=== PATIENT | female | born 1960 | race Caucasian/White ===

== ENCOUNTER 2018-07-25 11:42 | Emergency (ER) | payer MEDICARE, MEDICAID ==
[~2018-07-25] VITALS: Ht 162.6 cm; Wt 79.5 kg
[2018-07-25 11:47] VITALS: TEMP 98.9
[2018-07-25 12:20] LABS: BASO % 0.3 % (0.0-2.0); EOS # 0.1 (0.0-0.7); GRAN # 7.2 (1.4-6.5); GRAN % 67.4 % (42.2-75.2); HEMATOCRIT 43.7 % (37.0-47.0); HEMOGLOBIN 14.7 g/dl (12.5-16.0); LYMPH # 2.5 (1.2-3.4); LYMPH % 23.3 % (20.0-51.0); MEAN CELL VOLUME 87 fl (80.0-100.0); MEAN CORPUSCULAR HEMOGLOBIN 29 pg (27.0-31.0); MEAN CORPUSCULAR HGB CONC 34 g/dl (33.0-37.0); MEAN PLATELET VOLUME 13.6 fl (7.4-10.4); MONO # 0.8 (0.1-0.6); MONO % 7.6 % (1.7-9.3); PLATELET COUNT 124 K/mm3 (130-400); RED BLOOD COUNT 5.04 M/mm3 (4.10-5.30); REDCELL DISTRIBUTION WIDTH-CV 13.2 % (11.5-14.5)
[2018-07-25 12:33] LABS: ALBUMIN 4.3 gm/dL (3.5-5.0); BILIRUBIN,TOTAL 0.5 mg/dL (0.0-1.0); C-REACTIVE PROTEIN 1.1 mg/dL (0.0-0.9); CALCIUM 9.5 mg/dL (8.4-10.2); CREATININE, serum 0.8 mg/dL (0.52-1.25); POTASSIUM 3.6 mmol/L (3.4-5.0); TOTAL PROTEIN 7.4 gm/dL (6.4-8.2)
[2018-07-25 14:12] VITALS: BP 117/76; PULSE 68
== END 2018-07-25 14:29 | disposition home or self-care (01) ==
LOC: COL.ER 11:42
PROVIDERS: Nurse Practitioner Primary Care
DX: K59.00 Constipation, unspecified (principal); E11.9 Type 2 diabetes mellitus without complications; F17.210 Nicotine dependence, cigarettes, uncomplicated; K21.9 Gastro-esophageal reflux disease without esophagitis; M79.7 Fibromyalgia; Z98.51 Tubal ligation status
CPT/HCPCS: J2270; Q9967

== ENCOUNTER 2019-02-06 17:49 | Emergency (ER) | payer MEDICARE, MEDICAID ==
[~2019-02-06] VITALS: Ht 162.6 cm; Wt 77.3 kg
[2019-02-06 17:54] VITALS: TEMP 97.8
[2019-02-06 18:31] LABS: BASO % 0.3 % (0.0-2.0); EOS # 0.1 (0.0-0.7); EOS % 1.5 % (0-4.0); GRAN # 6.1 (1.4-6.5); GRAN % 64.8 % (42.2-75.2); HEMATOCRIT 45.6 % (37.0-47.0); HEMOGLOBIN 15.6 g/dl (12.5-16.0); LYMPH # 2.4 (1.2-3.4); LYMPH % 25.5 % (20.0-51.0); MEAN CELL VOLUME 86 fl (80.0-100.0); MEAN CORPUSCULAR HEMOGLOBIN 29 pg (27.0-31.0); MEAN CORPUSCULAR HGB CONC 34 g/dl (33.0-37.0); MEAN PLATELET VOLUME 14.2 fl (7.4-10.4); MONO # 0.7 (0.1-0.6); MONO % 7.7 % (1.7-9.3); PLATELET COUNT 116 K/mm3 (130-400); RED BLOOD COUNT 5.31 M/mm3 (4.10-5.30); REDCELL DISTRIBUTION WIDTH-CV 12.7 % (11.5-14.5)
[2019-02-06 18:46] LABS: ACETONE,SERUM NEGATIVE
[2019-02-06 18:49] LABS: ALANINE AMINOTRANSFERASE 61 U/L (9-52); ALBUMIN 4.1 gm/dL (3.5-5.0); ALKALINE PHOSPHATASE 94 U/L (50-136); ANION GAP 12 mmol/L (7-16); AST,SGOT 47 U/L (15-37); BILIRUBIN,TOTAL 0.4 mg/dL (0.0-1.0); BLOOD UREA NITROGEN 15 mg/dL (7-17); CALCIUM 9.3 mg/dL (8.4-10.2); CARBON DIOXIDE 26 mmol/L (22-30); CHLORIDE 99 mmol/L (98-107); CREATININE, serum 0.78 (0.52-1.25); GLUCOSE 250 mg/dL (74-106); LIPASE 81 U/L (23-300); POTASSIUM 3.4 mmol/L (3.4-5.0); SODIUM 137 mmol/L (137-145)
[2019-02-06 19:04] LABS: TROPONIN-I < 0.012 ng/mL (0.000-0.035)
[2019-02-06 19:17] LABS: COLLECTION METHOD CLEAN CATCH
[2019-02-06 19:22] LABS: PH 6 (5-8); SQUAMOUS EPITHELIAL 0-2 /hpf; URINE APPEARANCE Clear; URINE BACTERIA Rare /hpf; URINE BILIRUBIN Negative (NEGATIVE); URINE BLOOD Negative (NEGATIVE); URINE COLOR Yellow; URINE GLUCOSE 3+ (NEGATIVE); URINE KETONE Negative (NEGATIVE); URINE LEUKOCYTE ESTERASE Negative (NEGATIVE); URINE NITRATE Negative (NEGATIVE); URINE PROTEIN(semi-quant) Negative (NEGATIVE); URINE RBC None Seen /hpf; URINE UROBILINOGEN Negative (NEGATIVE)
[2019-02-06] MEDS ORDERED: BUSPAR5 MG PO (20:07)
[2019-02-06] MEDS ORDERED: FLONASEALLERGY NS (20:08)
[2019-02-06] MEDS ORDERED: CYMBALTA 60MG60 MG PO (20:08)
[2019-02-06] MEDS ORDERED: HCTZ 25MG TAB25 MG PO (20:09)
[2019-02-06] MEDS ORDERED: LINZESS72 MCG PO (20:09)
[2019-02-06] MEDS ORDERED: SINGULAIR 110 MG/TAB PO (20:10)
[2019-02-06] MEDS ORDERED: PRIL40 PO (20:11)
[2019-02-06] MEDS ORDERED: LYRICA200 MG PO (20:11)
[2019-02-06] MEDS ORDERED: CENTRUM1 TA1 (20:11)
[2019-02-06] MEDS ORDERED: NATURAL E400 IU PO (20:12)
[2019-02-06] MEDS ORDERED: GLUCOPHAGE1000 MG PO (20:12)
[2019-02-06] MEDS ORDERED: TRULICITY0.75 MG/0. SQ (20:12)
[2019-02-06 20:55] VITALS: BP 116/70; PULSE 73
== END 2019-02-06 20:55 | disposition home or self-care (01) ==
LOC: COL.ER 17:49
PROVIDERS: Emergency Medicine
DX: E11.65 Type 2 diabetes mellitus with hyperglycemia (principal); R10.31 Right lower quadrant pain; F17.210 Nicotine dependence, cigarettes, uncomplicated; M79.7 Fibromyalgia; R10.11 Right upper quadrant pain; Z98.51 Tubal ligation status; Z79.84 Long term (current) use of oral hypoglycemic drugs
CPT/HCPCS: J1815; J2405; J3010; J7030; Q9967

== ENCOUNTER → 2019-03-17 | Outpatient (CLI) | payer MEDICARE, MEDICAID ==
[~2019-03-17] MED LIST: BUSPAR5 MG PO; CENTRUM1 TA1; CYMBALTA 60MG60 MG PO; FLONASEALLERGY NS; GLUCOPHAGE1000 MG PO; HCTZ 25MG TAB25 MG PO; LINZESS72 MCG PO; LYRICA200 MG PO; NATURAL E400 IU PO; PRIL40 PO; SINGULAIR 110 MG/TAB PO; TRULICITY0.75 MG/0. SQ
== END ==
LOC: DIA.ED 03-16 07:40
DX: E11.40 Type 2 diabetes mellitus with diabetic neuropathy, unspecified (principal); I10 Essential (primary) hypertension
CPT/HCPCS: G0108

== ENCOUNTER 2019-08-07 17:31 | Inpatient (IN) | payer MEDICARE, MEDICAID ==
[~2019-08-07] VITALS: Ht 162.6 cm; Wt 77.5 kg
[~2019-08-07 17:31] MED LIST changes: -CENTRUM1 TA1; +CENTRUM1 TA1 PO; -LYRICA200 MG PO; +LYRICA225 MG PO
[2019-08-07] MEDS ORDERED: CLARITIN 1010 MG/TAB PO (18:40)
[2019-08-07 19:26] LABS: BASO # 0.1 (0.0-0.2); BASO % 0.3 % (0.0-2.0); EOS % 0.2 % (0-4.0); GRAN # 13.4 (1.4-6.5); GRAN % 83.5 % (42.2-75.2); HEMATOCRIT 44.3 % (37.0-47.0); HEMOGLOBIN 14.8 g/dl (12.5-16.0); LYMPH # 1.5 (1.2-3.4); LYMPH % 9.3 % (20.0-51.0); MEAN CELL VOLUME 88 fl (80.0-100.0); MEAN CORPUSCULAR HEMOGLOBIN 29 pg (27.0-31.0); MEAN CORPUSCULAR HGB CONC 33 g/dl (33.0-37.0); MEAN PLATELET VOLUME 13.5 fl (7.4-10.4); MONO # 0.9 (0.1-0.6); MONO % 5.5 % (1.7-9.3); PLATELET COUNT 120 K/mm3 (130-400); RED BLOOD COUNT 5.06 M/mm3 (4.10-5.30); REDCELL DISTRIBUTION WIDTH-CV 13.2 % (11.5-14.5)
[2019-08-07 19:30] LABS: INR 0.9 (0.8-3.0)
[2019-08-07 19:39] LABS: ALBUMIN 4.5 gm/dL (3.5-5.0); BILIRUBIN,TOTAL 0.6 mg/dL (0.0-1.0); CALCIUM 9.2 mg/dL (8.4-10.2); CREATININE, serum 1.06 (0.52-1.25); POTASSIUM 3.3 mmol/L (3.4-5.0); TOTAL PROTEIN 7.5 gm/dL (6.4-8.2)
[2019-08-07 21:34] VITALS: BP 119/57; PULSE 73; TEMP 98.1
--- NOTE | 2019-08-07 22:00 | NUR ---
Received from ER via [facility]. Assessment complete. A&Ox3. VS stable. C/O pain to right hip-rating pain 10/10 described as constant throbbing-morphine given per dr order. Refusing ice pack states "fibro and ice dont mesh." Denies shortness of breath/nausea. Plan of care discussed for ortho consult and surgery in AM. Denies questions/concerns. Oriented to room/policy. Call light in reach. Bed in low/wheels locked. Will monitor.
[2019-08-08] VITALS (13 sets, daily range): BP systolic 96–122; BP diastolic 42–58; PULSE 68–97; TEMP 97.9–99.4
[2019-08-08 03:40] LABS: COLLECTION METHOD IN
[2019-08-08 03:45] LABS: MUCOUS Present /lpf; PH 5 (5-8); SQUAMOUS EPITHELIAL 0-2 /hpf; URINE APPEARANCE Clear; URINE BACTERIA None Seen /hpf; URINE BILIRUBIN Negative (NEGATIVE); URINE BLOOD Negative (NEGATIVE); URINE COLOR Yellow; URINE GLUCOSE Negative (NEGATIVE); URINE KETONE Negative (NEGATIVE); URINE LEUKOCYTE ESTERASE Negative (NEGATIVE); URINE NITRATE Negative (NEGATIVE); URINE PROTEIN(semi-quant) Negative (NEGATIVE); URINE RBC 0-2 /hpf; URINE UROBILINOGEN Negative (NEGATIVE)
[2019-08-08 07:45] LABS: BASO % 0.2 % (0.0-2.0); EOS # 0.1 (0.0-0.7); EOS % 0.5 % (0-4.0); GRAN # 9.7 (1.4-6.5); GRAN % 74.5 % (42.2-75.2); HEMATOCRIT 40.9 % (37.0-47.0); HEMOGLOBIN 13.4 g/dl (12.5-16.0); LYMPH % 15.5 % (20.0-51.0); MEAN CELL VOLUME 89 fl (80.0-100.0); MEAN CORPUSCULAR HEMOGLOBIN 29 pg (27.0-31.0); MEAN CORPUSCULAR HGB CONC 33 g/dl (33.0-37.0); MEAN PLATELET VOLUME 13.7 fl (7.4-10.4); MONO # 1.2 (0.1-0.6); MONO % 8.8 % (1.7-9.3); PLATELET COUNT 112 K/mm3 (130-400); REDCELL DISTRIBUTION WIDTH-CV 13.4 % (11.5-14.5)
[2019-08-08 08:11] LABS: CALCIUM 8.9 mg/dL (8.4-10.2); CREATININE, serum 0.83 (0.52-1.25); POTASSIUM 3.9 mmol/L (3.4-5.0)
--- NOTE | 2019-08-08 09:00 | NUR ---
Patient alert and oriented, answers questions appropriately. See assessment. RLE with neuros intact, pulses palpable. RLE externally rotated and shortening noted. C/o pain 4/10 to RLE.
--- NOTE | 2019-08-08 09:16 | NUR ---
Initial visit; Patient thanked Sawyer Helper for offering spiritual care and was receptive to Sawyer Helper keeping her in Sawyer Helper's prayers.
--- NOTE | 2019-08-08 11:10 | NUR ---
Report called to BAYLEE Farnsworth.
--- NOTE | 2019-08-08 12:00 | NUR ---
Coloring Checker met with patient, patient's sister Patty (ph#[phone]) and patient's ex-spouse Felix (ph#[phone]) to discuss discharge planning. Patient sees LIVIA Sandhu at [place] for primary care and obtains medications from [facility] with no difficulties. Patient does not use any DME but reports she has testing equipment for her diabetes. Patient reports independence with ADLS prior to her fall. Patient does not have Advance Directives but may be interested in setting them up during her stay here. SW will follow up. SW reviewed discharge planning options with patient including intermediate facilities and inpatient rehabilitation. Patient states she is hopeful to go home with either her sister or ex-spouse with outpatient therapy. Patty lives in [place] and Felix lives in [place]. SW to continue to follow for PT/OT evaluations and recommendations. Patient to have surgery later today.
--- NOTE | 2019-08-08 20:00 | NUR ---
Patient in bed, awake. States she is slightly uncomfortable, but does not need pain medication at this time. BP 96/49. Will infuse ordered IVF and recheck. Denies further needs at this time. Will continue to monitor.
--- NOTE | 2019-08-08 21:30 | NUR ---
Shift assessment complete. Patient in bed, awake. States pain 6/10 in right hip. Prn pain medication given. Pt not adequately consuming fluids, ordered IVF started at 125ml/hr into right AC IV. IV flushed prior, patent. IV dressing changed. Patient encouraged to C&DB, and to use IS. Patient verbalized understanding. TEDS/SCDs on. Right leg elevated on pillow. Repositioned to left side with pillow support per pt request. Denies further needs at this time. Will continue to monitor.
[2019-08-09 03:21] VITALS: BP 102/52; PULSE 95; TEMP 99.3
--- NOTE | 2019-08-09 03:35 | NUR ---
Patient in bed, awake. States pain 6/10 in right hip. Prn pain medication given. Ice pack applied to right hip. Denies further needs at this time. Will continue to monitor.
[2019-08-09 07:16] LABS: HEMATOCRIT 29.8 % (37.0-47.0); HEMOGLOBIN 9.8 g/dl (12.5-16.0)
[2019-08-09 07:27] LABS: CREATININE, serum 0.63 (0.52-1.25); POTASSIUM 3.6 mmol/L (3.4-5.0)
[2019-08-09 07:43] VITALS: BP 107/36; PULSE 104; TEMP 99
[2019-08-09 08:57] LABS: MEAN CELL VOLUME 89 fl (80.0-100.0); MEAN CORPUSCULAR HEMOGLOBIN 29 pg (27.0-31.0); MEAN CORPUSCULAR HGB CONC 33 g/dl (33.0-37.0); MEAN PLATELET VOLUME 14.3 fl (7.4-10.4); PLATELET COUNT 78 K/mm3 (130-400); RED BLOOD COUNT 3.38 M/mm3 (4.10-5.30); REDCELL DISTRIBUTION WIDTH-CV 13.4 % (11.5-14.5)
--- NOTE | 2019-08-09 09:45 | NUR ---
Patient alert and oriented, answers questions appropriately. See assessment. Incision to RLE with dressings CDI, no drainage noted. Neuros intact to RLE, pulses palpable. SCDs and TEDS in place. Encouraged post op exercises. No c/o at this time.
--- NOTE | 2019-08-09 10:59 | NUR ---
Fourth Officer checked PT/OT notes for discharge recommendations. SW spoke with Shaheed PT who is recommending Inpatient Rehab for patient. SW spoke with patient about a second preference and she advised she was not sure at this point but has heard good things about [facility]. Patient asked to wait on result from IPR referral before exploring second preference options. SW contacted Luli, IPR Director who will review referral. SW to continue to follow.
[2019-08-09 11:26] VITALS: BP 100/45; PULSE 99; TEMP 99.2
[2019-08-09 16:24] VITALS: BP 107/55; PULSE 94; TEMP 99.2
[2019-08-09 19:51] VITALS: BP 105/42; PULSE 96; TEMP 98.7
[2019-08-10 00:06] VITALS: BP 100/54; PULSE 92; TEMP 99.3
--- NOTE | 2019-08-10 01:02 | NUR ---
Patient alert and oriented, iv restarted on left forarm. Patient denied needs at this time. Dressing on right hip and outer knee are clean dry and intact. Patient has flores at this time.
[2019-08-10 03:20] VITALS: BP 109/50; PULSE 96; TEMP 99.2
[2019-08-10 06:51] LABS: BASO % 0.2 % (0.0-2.0); EOS # 0.1 (0.0-0.7); EOS % 0.5 % (0-4.0); GRAN # 9.3 (1.4-6.5); GRAN % 76.8 % (42.2-75.2); LYMPH # 1.4 (1.2-3.4); LYMPH % 11.1 % (20.0-51.0); MEAN CELL VOLUME 89 fl (80.0-100.0); MEAN CORPUSCULAR HGB CONC 33 g/dl (33.0-37.0); MEAN PLATELET VOLUME 13.6 fl (7.4-10.4); MONO # 1.3 (0.1-0.6); MONO % 10.7 % (1.7-9.3); PLATELET COUNT 70 K/mm3 (130-400); RED BLOOD COUNT 3.03 M/mm3 (4.10-5.30); REDCELL DISTRIBUTION WIDTH-CV 13.2 % (11.5-14.5)
[2019-08-10 07:02] LABS: CREATININE, serum 0.57 (0.52-1.25); POTASSIUM 3.5 mmol/L (3.4-5.0)
[2019-08-10 07:10] LABS: HEMATOCRIT 26.9 % (37.0-47.0); HEMOGLOBIN 8.9 g/dl (12.5-16.0); MEAN CORPUSCULAR HEMOGLOBIN 29 pg (27.0-31.0)
[2019-08-10] MEDS ORDERED: NORCO 325 MG-51 TAB PO (09:03)
[2019-08-10] MEDS ORDERED: NICODERM C14 MG/PATC TD (09:05)
[2019-08-10] MEDS ORDERED: XARELTO10 MG PO (09:06)
[2019-08-10] MEDS ORDERED: TYLENOL 325MG325 MG PO (09:06)
[2019-08-10] MEDS ORDERED: DULCOLAX S10 MG/SUPP RC (09:07)
[2019-08-10] MEDS ORDERED: SENNA-S 50 MG-81 TAB PO (09:07)
[2019-08-10 09:13] VITALS: BP 103/34; PULSE 96; TEMP 98.6
--- NOTE | 2019-08-10 11:24 | NUR ---
[facility] was notified by Luli, [facility] Director that they can accept patient. Patient to discharge to [facility] today.
== END 2019-08-10 10:22 | DRG 482 ==
LOC: COL.ER 17:31 → SURG 18:58
PROVIDERS: Emergency Medicine; Nurse Practitioner Family; Orthopaedic Surgery; ADMIT Student in an Organized Health Care Education/Training Program
PROC: 0QH606Z Insertion of Intramedullary Internal Fixation Device into Right Upper Femur, Open Approach (ICD-10-PCS; 2019-08-08)
PROC: 0QS604Z Reposition Right Upper Femur with Internal Fixation Device, Open Approach (ICD-10-PCS; principal; 2019-08-08 14:15)
DX: S72.141A Displaced intertrochanteric fracture of right femur, initial encounter for closed fracture (principal); S72.21XA Displaced subtrochanteric fracture of right femur, initial encounter for closed fracture; W07.XXXA Fall from chair, initial encounter; Y92.009 Unspecified place in unspecified non-institutional (private) residence as the place of occurrence of the external cause; E11.9 Type 2 diabetes mellitus without complications; F17.210 Nicotine dependence, cigarettes, uncomplicated; M79.7 Fibromyalgia; D69.6 Thrombocytopenia, unspecified; D72.829 Elevated white blood cell count, unspecified; E87.6 Hypokalemia; K75.81 Nonalcoholic steatohepatitis (NASH); Z79.84 Long term (current) use of oral hypoglycemic drugs
CPT/HCPCS: 99222-AI; 99233-AI; 99239; A9284; C1713; C1769; J0690; J1815; J2250; J2270; J2405; J2704; J2795; J3010; J3370; J7030

== ENCOUNTER 2019-08-10 10:20 | Inpatient (IN) | payer MEDICARE, MEDICAID ==
[~2019-08-10] VITALS: Ht 162.6 cm; Wt 80.9 kg
[~2019-08-10 10:20] MED LIST changes: +CLARITIN 1010 MG/TAB PO; +DULCOLAX S10 MG/SUPP RC; +NICODERM C14 MG/PATC TD; +NORCO 325 MG-51 TAB PO; +SENNA-S 50 MG-81 TAB PO; +TYLENOL 325MG325 MG PO; +XARELTO10 MG PO
[2019-08-10 10:49] VITALS: BP 103/34; PULSE 96; TEMP 98.6
--- NOTE | 2019-08-10 10:51 | NUR ---
Report from ADEN Herrera. Pt admitted to 334 from surgical via bed, yellow gown and glasses in place. INT to [facility], flores catheter out, requested pt/OT to report voiding to this nurse.
--- NOTE | 2019-08-10 12:39 | NUR ---
Warm blanket and pain med given, pt does not want to eat at this time.
[2019-08-10 16:24] VITALS: BP 93/41; PULSE 101; TEMP 100.2
[2019-08-10 17:26] VITALS: BP 93/41; PULSE 101; TEMP 100.2
[2019-08-10 18:20] VITALS: BP 106/48; PULSE 110; TEMP 97.8
--- NOTE | 2019-08-10 19:42 | NUR ---
Pt requested more pain meds, orders obtained for norco 1-2 tabs. Pt resting comfortably in bed after supper. Report to ADEN Preston.
--- NOTE | 2019-08-10 21:00 | NUR ---
PT RESTING IN BED. A&O X4. PLEASANT AND COOPERATIVE. CONSENTS SIGNED, BIMS DONE. PT RELATES PAIN IS TOLERABLE AT LEVEL 4. REVIEWED IPR ROUTINE AND IPR FOLDER WITH INFO. TEDS OFF. SCD'S ON BILAT. SEE SHIFT ASSESSMENT.
[2019-08-10 23:38] VITALS: BP 113/42; PULSE 93; TEMP 97.8
--- NOTE | 2019-08-11 05:00 | NUR ---
MIN 1 ASSIST PT TO BR W/ WALKER. SLOW BUT STEADY. REQ PAIN MED AND NICOTINE PATCH. REPLACED LOST PATCH TO RT UPPER ARM. SEE MAR. PT C/O BED MATTRESS CAUSING MUCH BACK PAIN. FOAM MATTRESS PLACED ON BED. O2 BACK ON. CHANGED TO 2L NC. HAD BEEN ON 3L NC. ENC IS USE. CALL LIGHT IN REACH. BED ALARMSET.
[2019-08-11 05:45] VITALS: BP 104/35; PULSE 85; TEMP 97.9
[2019-08-11 07:22] LABS: BASO % 0.3 % (0.0-2.0); EOS # 0.1 (0.0-0.7); EOS % 0.8 % (0-4.0); GRAN # 7.5 (1.4-6.5); GRAN % 74.7 % (42.2-75.2); LYMPH # 1.2 (1.2-3.4); LYMPH % 12.2 % (20.0-51.0); MEAN CELL VOLUME 88 fl (80.0-100.0); MEAN CORPUSCULAR HGB CONC 33 g/dl (33.0-37.0); MEAN PLATELET VOLUME 13.9 fl (7.4-10.4); MONO # 1.2 (0.1-0.6); MONO % 11.6 % (1.7-9.3); PLATELET COUNT 82 K/mm3 (130-400); RED BLOOD COUNT 2.71 M/mm3 (4.10-5.30); REDCELL DISTRIBUTION WIDTH-CV 13.2 % (11.5-14.5)
[2019-08-11 07:23] LABS: HEMATOCRIT 23.9 % (37.0-47.0); HEMOGLOBIN 7.9 g/dl (12.5-16.0); MEAN CORPUSCULAR HEMOGLOBIN 29 pg (27.0-31.0)
--- NOTE | 2019-08-11 09:39 | NUR ---
Report from ADEN Preston. Pt bedresting after finishing breakfast. Traced shadowing to both aquacel dressings to rt lateral thigh. Distal gauze and tegaderm by knee without shadowing. Pt's O2 per NC removed this morning while meds were given. Reports sinus congestion and slight bleeding, will get orders for saline nasal spray. Pt declined offer of pain med prior to start of therapy, but called for pill once therapy started and she was doing bed mobility. Takes pills whole with thin liquids, PRN Bowel Meds given and rehab cocktail. Pt reports numbness to rt hand since hospitalization, enc shoulder/arm ROM. Pt with BENITEZ Osei.
--- NOTE | 2019-08-11 12:39 | NUR ---
Follow-up visit; Patient and her sister thanked Music Artist for looking in on her again, wishing her well and offering encouragement.
--- NOTE | 2019-08-11 14:41 | NUR ---
Manager Universal met with patient to complete initial intake as patient is new to [facility]. Patient lives alone in [place]. Patient has support from her ex-spouse, Felix (ph#[phone]) who lives in [place] and her sister Patty (ph#[phone]) who lives in [place]. Patient sees LIVIA Sandhu at [place] for primary care and obtains medications from [facility] with no difficulties. Patient does not use any DME currently and was independent with ADLS prior to her fall. Patient does not have Advance Directives set up but states she plans to sit down with her family soon to establish them. SW to continue to follow.
[2019-08-11 16:23] VITALS: BP 110/51; PULSE 95; TEMP 98.6
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
--- NOTE | 2019-08-11 20:00 | NUR ---
PATIENT RESTING IN BED DURING SHIFT CHANGE REPORT FROM DAY SHIFT NURSE. BED ALARM ENGAGED. NO OTHER NEEDS REPORTED.
--- NOTE | 2019-08-11 20:01 | NUR ---
Bedside report to ADEN Romero. Pt resting comfortably in bed, glasses in place, yellow gripper socks and yellow gown on, call lt in reach, pillows under BLE, bed alarm on. Pt denies further needs at that time.
--- NOTE | 2019-08-12 03:14 | NUR ---
PATIENT RESTING WITH EYES CLOSED, DOES NOT AWAKEN WHEN ROOM ENTERED. BED ALARM ENGAGED.
[2019-08-12 05:41] VITALS: BP 103/49; PULSE 82; TEMP 98.5
--- NOTE | 2019-08-12 07:44 | NUR ---
REPORT GIVEN TO DAY SHIFT NURSE DURING SHIFT CHANGE, PATIENT RESTING IN BED. PATIENT RESTING WITH EYES CLOSED, DOES NOT AWAKEN WHEN ROOM ENTERED. BED ALARM ENGAGED
[2019-08-12] MEDS ORDERED: GLUMETZA1000 MG PO (08:13)
--- NOTE | 2019-08-12 09:51 | NUR ---
Follow-up visit; Patient appeared to appreciate Passenger Brakeman stopping in and wishing her well along with talking briefly about grief and the availability of Passenger Brakeman to listen and offer support.She thanked Passenger Brakeman for offering spiritual care.
--- NOTE | 2019-08-12 10:27 | NUR ---
Patient sitting up at edge of bed, she has been working with therapy. Pain manged after norco given. New aquacell dressing to right hip after shower, shadowing noted to edges of dressing. Overall patient is doing well, only concern is when she can discharge home.
--- NOTE | 2019-08-12 15:00 | NUR ---
Blacksmith Hammer Operator met with patient to check in before the weekend. Patient reports she is doing well and has no concerns or questions at this time. SW to continue to follow.
[2019-08-12 17:32] VITALS: BP 109/61; PULSE 91; TEMP 97.6
--- NOTE | 2019-08-12 17:45 | NUR ---
Patient continues to do well today. Sitting up in bed eating dinner. She denies the need for pain medication this evening.
--- NOTE | 2019-08-12 20:00 | NUR ---
PATIENT RESTING IN BED DURING SHIFT CHANGE REPORT FROM DAY SHIFT NURSE. BED ALARM ENGAGED.
--- NOTE | 2019-08-13 03:26 | NUR ---
RESTING WITH EYES CLOSED, DOES NOT AWAKEN WHEN ROOM ENTERED. BED ALARM ENGAGED
[2019-08-13 04:41] VITALS: BP 115/48; PULSE 94; TEMP 97.3
--- NOTE | 2019-08-13 07:23 | NUR ---
PATIENT RESTING IN BED DURING SHIFT CHANGE REPORT GIVEN TO DAY SHIFT NURSE. BED ALARM ENGAGED.
--- NOTE | 2019-08-13 12:43 | NUR ---
Patient resting in bed at this time. She had a visitor this morning and opted to not go to group therapy, but OT was going to drop off some weights for her to use over the weekend. She has been having some hip pain and has been using ice and pain meds to manage. Both she reports have been effective. She was independent with her grooming while sitting in a wheelchair. She uses her call light appropriatly. She pulls pants, down, up and wipes her self independently when using the toilet. Patient denies questions at this time. Will continue to monitor.
[2019-08-13 18:30] VITALS: BP 118/50; PULSE 91; TEMP 98
--- NOTE | 2019-08-13 20:00 | NUR ---
PATIENT RESTING IN BED DURING SHIFT CHANGE REPORT FROM DAY SHIFT NURSE. BED ALARM ENGAGED.
--- NOTE | 2019-08-13 20:27 | NUR ---
Patient did not attend group this morning due to having a visitor at that time. Patient did receive some weights to work out by herself in her room. This nurse observed her doing excersizes multiple times today. Patient was given a suppository this evening and it was effective. Patient currently resting in bed, call light in reach and denies any questions at this time. She undressed herself, and put her night gown on herself. Patient given prn pain meds through out the day and they were effective. She applied ice to right leg and this did help with swelling. She wore her mike hose and was able to put them on and take them off herself.
--- NOTE | 2019-08-14 02:33 | NUR ---
RESTING WITH EYES CLOSED IN BED, DOES NOT AWAKEN WHEN ROOM ENTERED. BED ALARM ON.
[2019-08-14 04:51] VITALS: BP 100/50; PULSE 79; TEMP 97.9
--- NOTE | 2019-08-14 07:10 | NUR ---
PATIENT RESTING IN BED DURING SHIFT CHANGE REPORT GIVEN TO DAY SHIFT NURSE. BED ALARM ON.
--- NOTE | 2019-08-14 15:25 | NUR ---
Patient has been tolerating diet well this shift. She was able to do all her own grooming while sitting in her wheelchair this morning. Patient was able to take gown off and put her shirt, pants and shoes on independently this morning. Patient walked around the [facility] and surgical hallways this afternoon with Kwan/CARMINA. Patient reports that pain has been managed well with prn pain meds. Denies any questions at this time.
[2019-08-14 18:07] VITALS: BP 112/49; PULSE 95; TEMP 98
--- NOTE | 2019-08-14 20:00 | NUR ---
PATIENT RESTING IN BED DURING SHIFT CHANGE REPORT FROM DAY SHIFT NURSE. BED ALARM ON.
--- NOTE | 2019-08-15 01:22 | NUR ---
PATIENT UP TO BATHROOM WITH ASSIST, BED ALARM ON. NO NEEDS REPORTS AT THIS TIME.
[2019-08-15 05:16] VITALS: BP 110/58; PULSE 79; TEMP 97.7
[2019-08-15 07:07] LABS: BASO % 0.2 % (0.0-2.0); EOS # 0.3 (0.0-0.7); EOS % 3.1 % (0-4.0); GRAN # 5.2 (1.4-6.5); GRAN % 63.7 % (42.2-75.2); LYMPH # 1.7 (1.2-3.4); MEAN CELL VOLUME 90 fl (80.0-100.0); MEAN CORPUSCULAR HGB CONC 32 g/dl (33.0-37.0); MEAN PLATELET VOLUME 12.2 fl (7.4-10.4); MONO # 0.9 (0.1-0.6); MONO % 10.5 % (1.7-9.3); PLATELET COUNT 208 K/mm3 (130-400); RED BLOOD COUNT 2.91 M/mm3 (4.10-5.30); REDCELL DISTRIBUTION WIDTH-CV 13.5 % (11.5-14.5)
[2019-08-15 07:12] LABS: HEMATOCRIT 26.3 % (37.0-47.0); HEMOGLOBIN 8.3 g/dl (12.5-16.0); MEAN CORPUSCULAR HEMOGLOBIN 29 pg (27.0-31.0)
[2019-08-15 07:16] LABS: BILIRUBIN,TOTAL 0.9 mg/dL (0.0-1.0); CALCIUM 8.7 mg/dL (8.4-10.2); CREATININE, serum 0.66 (0.52-1.25); POTASSIUM 3.8 mmol/L (3.4-5.0)
[2019-08-15 07:29] LABS: MAGNESIUM 2.1 mg/dL (1.6-2.3)
--- NOTE | 2019-08-15 07:42 | NUR ---
PATIENT RESTING IN BED DURING SHIFT CHANGE REPORT GIVEN TO DAY SHIFT NURSE. BED ALARM ON.
--- NOTE | 2019-08-15 11:13 | NUR ---
AARON met with the patient to introduce oneself and to follow up after the weekend. The patient states that she is doing well. She states that she was able to go outside on Thursday, which was nice. The patient reports that her friend has a walker and shower bench that she can borrow upon discharge. She states that if outpatient therapy is recommended upon discharge, then she would prefer it to be at [facility] on [facility]. She had no other questions for AARON at this time. AARON to continue to follow.
[2019-08-15 16:07] VITALS: BP 95/55; PULSE 88; TEMP 98.4
--- NOTE | 2019-08-15 18:05 | NUR ---
Bedside report from ADEN Romero. Pt bedresting, awakened for breakfast, dressings intact to RLE, cont to have some numbness to left fingers. Made mod I in rm and IPR patel with walker. Resume xarelto tomorrow. Pt had O2 on last night, need to f/u if pt needs to get orders for O2 at home.
--- NOTE | 2019-08-15 19:40 | NUR ---
Patient rests in bed HS meds along with norco reviewed and given. Ice pack applied RLE. Alert and oriented x 4. Pleasant. States had some fruit for snack.
--- NOTE | 2019-08-16 02:31 | NUR ---
Rests with eyes closed.
[2019-08-16 03:58] VITALS: BP 150/71; PULSE 88; TEMP 97.7
[2019-08-16 05:16] VITALS: BP 107/53; PULSE 77; TEMP 97.9
--- NOTE | 2019-08-16 05:27 | NUR ---
Patient awake and states didn't rest well this noc. Norman given for right hip and back pain.
--- NOTE | 2019-08-16 12:06 | NUR ---
Follow-up; "Good morning," from Patient who was doing Physical Therapy and recognized Handbag Parts Cutter from former visits.
--- NOTE | 2019-08-16 14:30 | NUR ---
Admission QIM scores were reviewed by the team. Code of 6 chosen for oral hygiene was determined by team discussion to be the most usual performance before interventions for this patient during the assessment period. Code of 5 chosen for upper body dressing was determined by team discussion to be the most usual performance before interventions for this patient during the assessment period. Code of 88 chosen for walking 10 feet was determined by team discussion to be the most usual performance for this patient during the assessment period.--Luli Mcintosh, PD
--- NOTE | 2019-08-16 14:58 | NUR ---
AARON met with the patient to schedule a family meeting. The patient reports that her friend, Holli, should be able to come for the meeting and that tomorrow, 08/17, at 1330 should work. AARON notified IPR Director and
[2019-08-16 16:08] VITALS: BP 109/51; PULSE 86; TEMP 98.3
--- NOTE | 2019-08-16 19:21 | NUR ---
Shift summary: Bedside report from ADEN Conde. Pt dax mod I in rm w/ walker. See orders for noc ox to determine if pt qualifies for home O2 at night. Has been using O2 per NC here at [facility]. No new changes. [place] for pain, pt dressed herself. Bedside report to ADEN Conde.
--- NOTE | 2019-08-16 21:10 | NUR ---
HS meds along with norco for pain reviewed and given. Patient was resting in bed awake. Assisted with knee hi teds off RLE. Declines snack.
--- NOTE | 2019-08-17 02:50 | NUR ---
Rests with eyes closed. Respirations with ease.
[2019-08-17 05:01] VITALS: BP 108/53; PULSE 78; TEMP 97.8
--- NOTE | 2019-08-17 05:11 | NUR ---
Patient reports right hip pain 12/20 and norco 1 tab given. States "I guess" to if slept well tonight.
[2019-08-17 07:47] LABS: BASO % 0.3 % (0.0-2.0); EOS # 0.3 (0.0-0.7); EOS % 2.7 % (0-4.0); GRAN % 68.2 % (42.2-75.2); HEMATOCRIT 27.5 % (37.0-47.0); HEMOGLOBIN 8.7 g/dl (12.5-16.0); LYMPH % 19.6 % (20.0-51.0); MEAN CELL VOLUME 92 fl (80.0-100.0); MEAN CORPUSCULAR HEMOGLOBIN 29 pg (27.0-31.0); MEAN CORPUSCULAR HGB CONC 32 g/dl (33.0-37.0); MEAN PLATELET VOLUME 11.6 fl (7.4-10.4); MONO # 0.8 (0.1-0.6); MONO % 8.2 % (1.7-9.3); PLATELET COUNT 267 K/mm3 (130-400); RED BLOOD COUNT 2.99 M/mm3 (4.10-5.30); REDCELL DISTRIBUTION WIDTH-CV 14.6 % (11.5-14.5)
--- NOTE | 2019-08-17 15:22 | NUR ---
AARON attended a family meeting with the patient and her friend, Holli. Also present was IPR Director, PT, OT, ST, and her RN. IPR Director started by explaining the purpose of the meeting. PT/OT/ST then discussed the patient's progress with the recommendations of a discharge for tomorrow, 08/18, with outpatient PT. The patient was in agreeance to this. The team answered all questions. AARON then presented and reviewed the IPR Team Conference Note with the patient. She had no other questions or concerns for discharge for SW. AARON presented and explained the IM form to the patient. The patient verbalized understanding, signed, and she was provided a copy. AARON collaborated with the patient's RN. The patient's RN made an outpatient PT appointment for the patient at [facility] on [facility]. AARON to continue to follow.
[2019-08-17] MEDS ORDERED: ZOCOR 20MG20 MG PO (17:14)
[2019-08-17] MEDS ORDERED: HCTZ 25MG TAB25 MG PO (17:16)
[2019-08-17 17:27] VITALS: BP 110/54; PULSE 89; TEMP 98.4
--- NOTE | 2019-08-17 20:00 | NUR ---
Shift summary: Bedside report from ADEN Conde. Pt dax Mod I in rm w/ walker well. Prepared to go home tomorrow. Cancelled noc ox as pt was on RA last noc. changed dressing to distal incision by right knee, milton intact, edges approximated, no drainage, applied folded gauze and tegaderm. Shadowing still to upper incisions, aquacel dressings intact, informed ADEN Romero at bedside report that this could be changed prior to discharge. [place] for pain.
--- NOTE | 2019-08-17 23:06 | NUR ---
PATIENT RESTING IN BED DURING SHIFT CHANGE REPORT FROM DAY SHIFT NURSE. UP INDEPENDENTLY IN ROOM WITH NO PROBLEMS.
--- NOTE | 2019-08-18 01:30 | NUR ---
PATIENT RESTING QUIETLY WITH EYES CLOSED, DOES NOT AWAKEN WHEN ROOM ENTERED. UP INDEPENDENTLY IN ROOM WITH NO PROBLEMS.
[2019-08-18 05:26] VITALS: BP 111/63; PULSE 75; TEMP 98.1
[2019-08-18] MEDS ORDERED: FERRO-TIME325 MG PO (07:18)
[2019-08-18] MEDS ORDERED: DEEP SEA 45 ML45 ML NS (07:21)
[2019-08-18] MEDS ORDERED: NORCO 325 MG-51 TAB PO (07:21)
--- NOTE | 2019-08-18 07:22 | NUR ---
Patient resting in bed during shift change report given to day shift nurse. Patient up independently in room, expects to be dismissed from IPR later today.
--- NOTE | 2019-08-18 08:53 | NUR ---
Patient resting in bed at this time, call light in reach and denies questions at this time. Discussed discharge and patient is looking at leaving for home after 1 pm today.
--- NOTE | 2019-08-18 11:53 | NUR ---
The patient is to discharge back home today, 08/18, with outpatient PT at [facility] on [address]. SW contacted and faxed the patient's discharge orders to [facility] on [address]. No additional needs at this time.
--- NOTE | 2019-08-18 12:56 | NUR ---
Patient Health Summary, Discharge Summary, and Home Meds printed and reviewed with patient. Stressed importance of follow up appointments. Reviewed medications, provided printed prescription for [place]. Called Prescription for Xerelto into pharmacy. Belongings gathered by patient including phone, insurance assistant, ring, glasses and clothes. Patient transported via walker by Abbey and seatbelted for ride home with friend. Patient denied any questions.
== END 2019-08-18 12:35 | disposition home or self-care (01) | DRG 561 ==
PROVIDERS: ADMIT Internal Medicine
DX: S72.141D Displaced intertrochanteric fracture of right femur, subsequent encounter for closed fracture with routine healing (principal); S72.21XD Displaced subtrochanteric fracture of right femur, subsequent encounter for closed fracture with routine healing; W19.XXXD Unspecified fall, subsequent encounter; R53.81 Other malaise; E11.9 Type 2 diabetes mellitus without complications; F17.210 Nicotine dependence, cigarettes, uncomplicated; M79.7 Fibromyalgia; K75.81 Nonalcoholic steatohepatitis (NASH); D69.6 Thrombocytopenia, unspecified; M19.90 Unspecified osteoarthritis, unspecified site; I10 Essential (primary) hypertension; E87.6 Hypokalemia; D72.829 Elevated white blood cell count, unspecified; Z79.84 Long term (current) use of oral hypoglycemic drugs; Z79.891 Long term (current) use of opiate analgesic
CPT/HCPCS: 99222-AI; 99232-AI; 99239; J1815

== ENCOUNTER → 2019-09-20 | Outpatient (CLI) | payer MEDICARE, MEDICAID ==
[~2019-09-20] MED LIST changes: +DEEP SEA 45 ML45 ML NS; +FERRO-TIME325 MG PO; +GLUMETZA1000 MG PO; +ZOCOR 20MG20 MG PO
== END ==
LOC: COL.VAS 14:38
DX: M79.89 Other specified soft tissue disorders (principal)

== ENCOUNTER 2019-11-15 10:00 | Outpatient (RCR) | payer MEDICARE, MEDICAID | END 2019-12-22 | disposition still patient (30) | LOC: MKS.ESL.PT | DX: S72.001A Fracture of unspecified part of neck of right femur, initial encounter for closed fracture (principal); Z98.890 Other specified postprocedural states ==

== ENCOUNTER 2020-03-20 10:16 | Emergency (ER) | payer MEDICARE, MEDICAID ==
[~2020-03-20] VITALS: Ht 162.6 cm; Wt 80.5 kg
[2020-03-20 10:40] VITALS: TEMP 97.6
[2020-03-20 11:36] LABS: COLLECTION METHOD CLEAN CATCH
[2020-03-20 11:37] LABS: BASO # 0.1 (0.0-0.2); BASO % 0.6 % (0.0-2.0); EOS # 0.2 (0.0-0.7); EOS % 1.9 % (0-4.0); GRAN # 4.6 (1.4-6.5); GRAN % 59.8 % (42.2-75.2); HEMATOCRIT 46.1 % (37.0-47.0); HEMOGLOBIN 15.6 g/dl (12.5-16.0); LYMPH # 2.2 (1.2-3.4); LYMPH % 27.8 % (20.0-51.0); MEAN CELL VOLUME 87 fl (80.0-100.0); MEAN CORPUSCULAR HEMOGLOBIN 29 pg (27.0-31.0); MEAN CORPUSCULAR HGB CONC 34 g/dl (33.0-37.0); MEAN PLATELET VOLUME 13.1 fl (7.4-10.4); MONO # 0.7 (0.1-0.6); MONO % 9.6 % (1.7-9.3); PLATELET COUNT 115 K/mm3 (130-400); RED BLOOD COUNT 5.33 M/mm3 (4.10-5.30); REDCELL DISTRIBUTION WIDTH-CV 13.1 % (11.5-14.5)
[2020-03-20 11:54] LABS: ALANINE AMINOTRANSFERASE 24 U/L (4-34); ALBUMIN 4.6 gm/dL (3.5-5.0); ALKALINE PHOSPHATASE 110 U/L (50-136); ANION GAP 10 mmol/L (7-16); AST,SGOT 34 U/L (15-37); BILIRUBIN,TOTAL 0.5 mg/dL (0.0-1.0); BLOOD UREA NITROGEN 16 mg/dL (7-17); CALCIUM 9.5 mg/dL (8.4-10.2); CARBON DIOXIDE 28 mmol/L (22-30); CHLORIDE 98 mmol/L (98-107); CREATININE, serum 0.77 (0.52-1.25); GLUCOSE 93 mg/dL (74-106); LIPASE 79 U/L (23-300); POTASSIUM 3.5 mmol/L (3.4-5.0); SODIUM 136 mmol/L (137-145); TOTAL PROTEIN 7.8 gm/dL (6.4-8.2)
[2020-03-20 11:58] LABS: PH 6 (5-8); URINE APPEARANCE Hazy; URINE BACTERIA Moderate /hpf; URINE BILIRUBIN Negative (NEGATIVE); URINE BLOOD Negative (NEGATIVE); URINE COLOR Yellow; URINE GLUCOSE Negative (NEGATIVE); URINE KETONE Negative (NEGATIVE); URINE LEUKOCYTE ESTERASE Negative (NEGATIVE); URINE NITRATE Negative (NEGATIVE); URINE PROTEIN(semi-quant) Negative (NEGATIVE); URINE RBC 0-2 /hpf; URINE UROBILINOGEN Negative (NEGATIVE)
[2020-03-20 12:10] LABS: TROPONIN-I < 0.012 ng/mL (0.000-0.035)
[2020-03-20] MEDS ORDERED: PHENERGAN 25 TA25 MG PO (13:40)
[2020-03-20 14:05] VITALS: BP 118/70; PULSE 77
== END 2020-03-20 14:08 | disposition home or self-care (01) ==
LOC: COL.ER 10:16
PROVIDERS: Emergency Medicine
DX: R10.11 Right upper quadrant pain (principal); R10.13 Epigastric pain; R11.10 Vomiting, unspecified; R19.7 Diarrhea, unspecified; E11.9 Type 2 diabetes mellitus without complications; F17.210 Nicotine dependence, cigarettes, uncomplicated; Z79.84 Long term (current) use of oral hypoglycemic drugs
CPT/HCPCS: C9113; J2270; J2405; J7030; Q9967

== ENCOUNTER → 2020-03-29 | Outpatient (CLI) | payer MEDICARE, MEDICAID ==
[~2020-03-29] MED LIST changes: +PHENERGAN 25 TA25 MG PO
== END ==
LOC: COL.RAD 09:40
DX: R10.11 Right upper quadrant pain (principal)

== ENCOUNTER → 2020-04-23 | Outpatient (CLI) | payer MEDICARE, MEDICAID ==
[~2020-04-23] MED LIST changes: +CALCIUM CARBON650 M2 PO; +MAG-OX 400400 MG/TAB PO; +NATURAL POTASS595 MG PO; +PROBIOTIC FORMU1 CAP PO; +PROMETHAZINE12.5 M5 PO; +PROTONIX 40MG T40 MG PO
== END ==
LOC: COL.RAD 06:30
DX: R14.0 Abdominal distension (gaseous) (principal)
CPT/HCPCS: A9537; J2805

== ENCOUNTER 2020-09-24 13:23 | Outpatient (RCR) | payer MEDICARE, MEDICAID ==
[~2020-09-24 13:23] MED LIST changes: +CALCIUM 600MG+D1 TAB PO; -CALCIUM CARBON650 M2 PO
== END 2020-11-22 10:53 | disposition home or self-care (01) ==
LOC: MKS.ESL.PT 13:23
DX: Z87.81 Personal history of (healed) traumatic fracture (principal)

== ENCOUNTER → 2021-02-20 | Outpatient (CLI) | payer MEDICARE, MEDICAID ==
[~2021-02-20] MED LIST changes: +BENTYL 20MG20 MG/TAB PO; +GLUCOPHAGE XR500 M1 PO; +MOTRIN 600600 MG/TAB PO
== END ==
LOC: COL.RAD 09:28
DX: K76.0 Fatty (change of) liver, not elsewhere classified (principal); R22.9 Localized swelling, mass and lump, unspecified; Z90.49 Acquired absence of other specified parts of digestive tract
CPT/HCPCS: Q9967

== ENCOUNTER → 2021-03-14 | Outpatient (CLI) | payer MEDICARE, MEDICAID | LOC: MC.RAD 10:37 | DX: Z12.31 Encounter for screening mammogram for malignant neoplasm of breast (principal) ==

== ENCOUNTER → 2021-04-01 | Outpatient (CLI) | payer MEDICARE, MEDICAID | LOC: COL.RAD 03-27 12:00 | DX: R22.9 Localized swelling, mass and lump, unspecified (principal); R10.12 Left upper quadrant pain ==

== ENCOUNTER 2021-04-23 06:05 | Day surgery (SDC) | payer MEDICARE, MEDICAID ==
[~2021-04-23] VITALS: Ht 162.6 cm; Wt 85.2 kg
[~2021-04-23 06:05] MED LIST changes: -BENTYL 20MG20 MG/TAB PO; -GLUCOPHAGE XR500 M1 PO; -MOTRIN 600600 MG/TAB PO
[2021-04-23 06:22] VITALS: BP 123/61; PULSE 79; TEMP 97.3
[2021-04-23] MEDS ORDERED: BENTYL 20MG20 MG/TAB PO (06:28)
[2021-04-23] MEDS ORDERED: GLUCOPHAGE XR500 M1 PO (06:29)
[2021-04-23] MEDS ORDERED: NATURAL E400 IU PO (06:29)
[2021-04-23 09:24] VITALS: BP 96/54; PULSE 72; TEMP 97.3
--- NOTE | 2021-04-23 09:24 | NUR ---
The patient arrived back to [facility] from the operating room at this time. The patient appears to be resting comfortably on the cart at this time. The patient denies any pain or nasuea at this time and agrees to try some apple juice at this time. The patient has surgical glue to her incision site that appears clean, dry and intact. Post operative vital signs were started at this time. Call light is within reach. Will continue to monitor the patient.
[2021-04-23 09:40] VITALS: BP 93/52; PULSE 73
--- NOTE | 2021-04-23 09:40 | NUR ---
The patient appears to be tolerating the juice well and denies wanting anything further to eat or drink at this time. Vital signs appear stable. Will continue to monitor the patient.
[2021-04-23] MEDS ORDERED: NORCO 325 MG-51 TAB PO (09:44)
[2021-04-23] MEDS ORDERED: MOTRIN 600600 MG/TAB PO (09:45)
[2021-04-23 09:55] VITALS: BP 106/49; PULSE 66
--- NOTE | 2021-04-23 09:55 | NUR ---
The patient voices a desire to be discharged home. The patient's IV to her left hand was removed and a pressure dressing was applied to the site. The nurse instructed the patient to get dressed and use the bathroom and the nurse will be back in to review her discharge instructions.
--- NOTE | 2021-04-23 10:15 | NUR ---
Discharge instructions were reviewed with the patient at this time. She verbalized understanding and has no questions for the nurse at this time. The patient's IV to her left hand was removed and a pressure dressing was applied to the site. The patient is dressed and ready to be escorted out. The patient's neighbor, Amaris, was called to come pick her up.
--- NOTE | 2021-04-23 10:30 | NUR ---
The patient was escorted out via wheelchair to a private vehicle by ADEN Moreno. The patient's belongings and discharge paperwork were sent with her. The patient's neighbor, Amaris, is present to drive her home.
== END 2021-04-23 10:30 | disposition home or self-care (01) ==
LOC: SDCO 06:05
DX: D17.1 Benign lipomatous neoplasm of skin and subcutaneous tissue of trunk (principal); E11.9 Type 2 diabetes mellitus without complications; D64.9 Anemia, unspecified; D69.6 Thrombocytopenia, unspecified; M79.7 Fibromyalgia; K21.9 Gastro-esophageal reflux disease without esophagitis; F17.210 Nicotine dependence, cigarettes, uncomplicated; F32.9 Major depressive disorder, single episode, unspecified; K58.9 Irritable bowel syndrome, unspecified; Z79.899 Other long term (current) drug therapy; Z20.822 Contact with and (suspected) exposure to COVID-19; Z82.49 Family history of ischemic heart disease and other diseases of the circulatory system; Z80.42 Family history of malignant neoplasm of prostate
CPT/HCPCS: J2250; J2704; J3010; J7120

== ENCOUNTER 2021-07-01 19:13 | Emergency (ER) | payer MEDICARE, MEDICAID ==
[~2021-07-01] VITALS: Ht 162.6 cm; Wt 84.5 kg
[~2021-07-01 19:13] MED LIST changes: +BENTYL 20MG20 MG/TAB PO; +GLUCOPHAGE XR500 M1 PO; +MOTRIN 600600 MG/TAB PO
[2021-07-01 19:21] VITALS: BP 134/82; PULSE 81; TEMP 98.5
== END 2021-07-01 21:15 | disposition left against medical advice (07) ==
LOC: COL.ER 19:13
DX: R10.31 Right lower quadrant pain (principal)

== ENCOUNTER 2021-07-10 15:29 | Emergency (ER) | payer MEDICARE, MEDICAID ==
[~2021-07-10] VITALS: Ht 162.6 cm; Wt 83.2 kg
[2021-07-10 15:45] VITALS: TEMP 98
[2021-07-10 16:12] LABS: BASO # 0.1 K/mm3 (0.0-0.2); BASO % 0.5 % (0.0-2.0); EOS # 0.2 K/mm3 (0.0-0.7); EOS % 1.6 % (0.0-4.0); GRAN # 6.2 K/mm3 (1.4-6.5); GRAN % 65.1 % (42.2-75.2); HEMATOCRIT 44.4 % (37.0-47.0); HEMOGLOBIN 14.8 g/dl (12.5-16.0); LYMPH # 2.3 K/mm3 (1.2-3.4); LYMPH % 23.8 % (20.0-51.0); MEAN CELL VOLUME 89 fl (80.0-100.0); MEAN CORPUSCULAR HEMOGLOBIN 30 pg (27-31); MEAN CORPUSCULAR HGB CONC 33 g/dl (33.0-37.0); MEAN PLATELET VOLUME 13.8 fl (7.4-10.4); MONO # 0.8 K/mm3 (0.1-0.6); MONO % 8.7 % (1.7-9.3); PLATELET COUNT 121 K/mm3 (130-400); RED BLOOD COUNT 5.01 M/mm3 (4.10-5.30); REDCELL DISTRIBUTION WIDTH-CV 13.3 % (11.5-14.5)
[2021-07-10 16:24] LABS: BILIRUBIN,TOTAL 0.4 mg/dL (0.2-1.2); CALCIUM 9.2 mg/dL (8.4-10.2); POTASSIUM 3.9 mmol/L (3.5-4.5); TOTAL PROTEIN 7.2 gm/dL (6.2-8.1)
[2021-07-10 17:18] LABS: COLLECTION METHOD CLEAN CATCH
[2021-07-10 17:24] LABS: MUCOUS Present (NOT PRESENT); PH 6 (5-8); SQUAMOUS EPITHELIAL 0-2 /hpf (0-10); URINE APPEARANCE Clear (CLEAR/HAZY); URINE BACTERIA None Seen /hpf (NONE SEEN); URINE BILIRUBIN Negative (NEGATIVE); URINE BLOOD Negative (NEGATIVE); URINE COLOR Straw (YELLOW); URINE GLUCOSE Negative (NEGATIVE); URINE KETONE Negative (NEGATIVE); URINE LEUKOCYTE ESTERASE Negative (NEGATIVE); URINE NITRATE Negative (NEGATIVE); URINE PROTEIN(semi-quant) Negative (NEGATIVE); URINE RBC None Seen /hpf (0-2); URINE UROBILINOGEN Negative (NEGATIVE)
[2021-07-10 18:56] VITALS: BP 112/58; PULSE 82
== END 2021-07-10 19:02 | disposition home or self-care (01) ==
LOC: COL.ER 15:29
PROVIDERS: Student in an Organized Health Care Education/Training Program
DX: R10.31 Right lower quadrant pain (principal); E11.43 Type 2 diabetes mellitus with diabetic autonomic (poly)neuropathy; K31.84 Gastroparesis; M79.7 Fibromyalgia; F17.210 Nicotine dependence, cigarettes, uncomplicated; Z79.84 Long term (current) use of oral hypoglycemic drugs; Z79.1 Long term (current) use of non-steroidal anti-inflammatories (NSAID)
CPT/HCPCS: J2405; J7030; Q9967

== ENCOUNTER 2022-03-19 05:08 | Day surgery (SDC) | payer MEDICARE, MEDICAID ==
[~2022-03-19] VITALS: Ht 162.6 cm; Wt 83.7 kg
[2022-03-19 05:45] VITALS: BP 118/56; PULSE 85; TEMP 97.4
[2022-03-19] MEDS ORDERED: LINZESS72 MCG PO (05:50)
[2022-03-19] MEDS ORDERED: OZEMPIC0.25 MG/0. SQ (05:51)
[2022-03-19 08:20] VITALS: BP 125/67; PULSE 71; TEMP 97.2
--- NOTE | 2022-03-19 08:20 | NUR ---
The patient arrived back to [facility] from the operating room at this time. The patient appears alert and oriented and denies any pain or nausea at this time. Post operative vital signs were started at this time. The patient agrees to try some apple juice and water. The patient denies any further needs at this time.
[2022-03-19] MEDS ORDERED: TYLENOL W/COD1 UDTAB PO (08:21)
[2022-03-19 08:35] VITALS: BP 126/64; PULSE 78
--- NOTE | 2022-03-19 08:35 | NUR ---
The patient appears to be tolerating the juice and water well. She denies any pain or nausea at this time. Vital signs appear stable. Call light is within reach.
[2022-03-19 08:50] VITALS: BP 117/58; PULSE 72
--- NOTE | 2022-03-19 08:50 | NUR ---
The patient denies wanting anything further to eat or drink and verbalizes a desire to be discharged home. Discharge instructions were reviewed with the patient and she verbalized understanding. The patient's IV to her left hand was removed and a pressure dressing was applied to the site. The patient's friend was instructed to pull the car up to the patient entrance while the patient gets changed.
--- NOTE | 2022-03-19 09:00 | NUR ---
The patient was escorted out via wheelchair to a private vehicle by ADEN Moreno. The patient's belongings and discharge paperwork were sent with her. The patient's friend, Stef, is present to drive her home.
== END 2022-03-19 09:00 | disposition home or self-care (01) ==
LOC: SDCO 05:08
DX: N84.0 Polyp of corpus uteri (principal); F17.210 Nicotine dependence, cigarettes, uncomplicated; E66.9 Obesity, unspecified; R93.89 Abnormal findings on diagnostic imaging of other specified body structures
CPT/HCPCS: J2405; J2704; J3010; J7120